=== PATIENT | male | born 1975 | race Caucasian/White ===

== ENCOUNTER 2023-04-12 14:33 | Emergency (ER) | payer OTHER, SELFPAY ==
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
[2023-04-12 14:47] VITALS: BP 163/103; PULSE 88; RESP 18; TEMP 36.8; O2SAT 98
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
== END 2023-04-12 15:30 | disposition short-term general hospital (02) ==
PROVIDERS: Emergency Provider Nurse Practitioner Family
DX: S63.005A Unspecified dislocation of left wrist and hand, initial encounter (principal); S62.102A Fracture of unspecified carpal bone, left wrist, initial encounter for closed fracture; V03.10XA Pedestrian on foot injured in collision with car, pick-up truck or van in traffic accident, initial encounter
CPT/HCPCS: 29105; 73110; 99214; G0463

== ENCOUNTER 2023-04-12 16:04 | Emergency (ER) | payer OTHER, SELFPAY ==
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
--- NOTE | ~2023-04-12 | XR_ITS ---
EXAM: XR wrist LT 2V DATE: 04/12/2023 19:25 HISTORY: post-reduction . COMPARISON: Same date at 3:10 PM. FINDINGS/IMPRESSION: Osseous detail obscured by overlying cast material. Left distal radial fracture alignment unchanged. Reviewed, dictated and finalized at location K.
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
[2023-04-12 16:05] VITALS: BP 168/99; PULSE 66; RESP 20; TEMP 36.9; O2SAT 98
[2023-04-12 16:51] LABS: Basophils Absolute Auto 0.1 K/mm3 (0.0-0.1); Basophils Percent Auto 0.5 % (0.2-1.2); Eosinophils Absolute Auto 0.2 K/mm3 (0-0.3); Eosinophils Percent Auto 0.9 % (0-4.4); Hematocrit 48.1 % (42.0-52.0); Hemoglobin 15.4 g/dL (14.0-18.0); Immature Granulocyte Absolute 0.26 K/mm3 (0.00-0.031); Immature Granulocyte Percent A 1.5 % (0-0.5); Lymphocytes Absolute Auto 2.68 K/mm3 (0.9-3.2); Lymphocytes Percent Auto 15.2 % (18.3-44.2); Mean Corpuscular Hemoglobin 28.9 pg (26-34); Mean Corpuscular Volume 90.4 fl (80-100); Mean Platelet Volume 8.7 fl (7.4-10.4); Monocytes Absolute Auto 1.5 K/mm3 (0.1-0.6); Monocytes Percent Auto 8.6 % (2.6-8.5); Neutrophils Absolute Auto 12.9 K/mm3 (1.3-6.7); Neutrophils Percent Auto 73.3 % (45.5-73.1); Platelet Count Result 304 k/mm3 (150-375); Red Blood Count 5.32 M/mm3 (4.6-6.20); Red Cell Distribution Width 13.1 % (11.5-14.5); White Blood Count 17.6 K/mm3 (4.5-10.0)
[2023-04-12 17:00] LABS: Alanine Aminotransferase 25 U/L (6-50); Albumin Level 4.5 g/dL (3.5-5.1); Alkaline Phosphatase 88 U/L (38-126); Anion Gap 5 mmol/L (8-16); Aspartate Amino Transferase 27 U/L (17-59); Bilirubin,Total 0.5 mg/dL (0.2-1.3); Blood Urea Nitrogen 20 mg/dL (9-20); Calcium 9.3 mg/dL (8.4-10.2); Carbon Dioxide 29 mmol/L (22-30); Chloride 100 mmol/L (98-107); Estimated CRCL calculation 76 ml/min; Estimated Glomerular Filt Rate > 60; Glucose 101 mg/dL (65-110); Potassium 4.4 mmol/L (3.4-5.0); Sodium 134 mmol/L (137-145)
[2023-04-12 17:01] LABS: Prothrombin Time 13.3 Seconds (11.1-14.7)
[2023-04-12 17:02] LABS: Partial Thromboplastin Time 26.2 SECONDS (22.3-36.8)
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
[2023-04-12] MEDS: MORPHINE SULFATE (*CRX) 4 MG/ML INJ IV PUSH (18:39)
--- NOTE | 2023-04-12 18:40 | PC.NURSE ---
ELENA JC AT BEDSIDE TO ATTEMPT TO REDUCE L WRIST. LOCAL BLOCK OF LIDOCAINE GIVEN. MANIPULATION IN PROGRESS AND PT IS TOLERATING WELL.
[2023-04-12] MEDS: TETANUS,DIPHTHERIA,AC PERTUSSIS ADULT (0.5 ML) BOOSTRIX IM (19:29)
[2023-04-12 19:33] VITALS: BP 129/79; PULSE 63; RESP 16; O2SAT 98
[2023-04-12] MEDS: fentaNYL CITRATE INJ (*CRX) 100 MCG/2 ML VIAL 50 MCG IV PUSH (19:51)
--- NOTE | 2023-04-12 20:57 | PC.NURSE ---
Sugar tong splint was applied to the pt's left lower arm by this RN and FIDENCIO Hunt, per ERP verbal order. CSM in tact post splint application.
[2023-04-12 21:00] VITALS: BP 126/71; PULSE 56; RESP 13; O2SAT 97
== END 2023-04-12 21:02 | disposition home or self-care (01) ==
PROVIDERS: Emergency Provider Physician Assistant
DX: S52.502A Unspecified fracture of the lower end of left radius, initial encounter for closed fracture (principal); S32.010A Wedge compression fracture of first lumbar vertebra, initial encounter for closed fracture; Z23 Encounter for immunization; I10 Essential (primary) hypertension; E78.5 Hyperlipidemia, unspecified; V09.00XA Pedestrian injured in nontraffic accident involving unspecified motor vehicles, initial encounter
CPT/HCPCS: 25605; 36415; 70450; 71260; 72125; 72129; 72132; 73100; 73110; 74177; 80053; 85025; 85610; 85730; 90471; 90715; 96374; 96375; 99285; J2270; J3010; Q9967

== ENCOUNTER 2024-02-07 12:40 | Emergency (ER) | payer OTHER, SELFPAY ==
[2024-02-07 12:42] VITALS: BP 164/99; PULSE 63; RESP 20; TEMP 37.1; O2SAT 100
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
== END 2024-02-07 14:31 | disposition home or self-care (01) ==
PROVIDERS: Emergency Provider Physician Assistant
DX: S06.0X0A Concussion without loss of consciousness, initial encounter (principal); S13.4XXA Sprain of ligaments of cervical spine, initial encounter; E78.5 Hyperlipidemia, unspecified; I10 Essential (primary) hypertension; V43.52XA Car driver injured in collision with other type car in traffic accident, initial encounter
CPT/HCPCS: 99283